=== PATIENT | female | born 1980 | race American Indian/Alaskan Native ===

== ENCOUNTER 2017-03-30 09:23 | Emergency (ER) | payer SELFPAY ==
[2017-03-30 09:30] VITALS: BP 112/57
[2017-03-30] MEDS ORDERED: PEPCID PO ONE (11:21)
--- NOTE | 2017-03-30 11:30 | Emergency Department Report ---
ED Rash HPI - HPI Chief Complaint: Skin Rash Stated Complaint: RIGHT HAND ITCHING Time Seen by Provider: 03/30/17 11:15 Duration: Today Location: Upper Extremities Suspected Cause: Other (latex gloves) Rash Symptoms: Yes Itching, No Facial Swelling, No Tongue/Oral Swelling, No Breathing Difficulties, No Choking Sensation, No Wheezing/Dyspnea, No Peeling, No Blistering, No Fever, No Lightheaded, No Malaise, No Myalgias Severity: mild Other History: This is a 37-year-old female nontoxic, well nourished in appearance, no acute signs of distress presents to the ED with c/o of bilateral hands itching and rash x1 day. Patient stated this is a chronic condiction that she develops when she wears latex gloves. 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 She denies any shortness of breath, fever, chills, nausea, vomiting, hoarseness, drooling, difficulty breathing, chest pain or shortness of breath. Patient denies any past medical history. Allergies to penicillin. ED Review of Systems ROS: Stated complaint: RIGHT HAND ITCHING Other details as noted in HPI Constitutional: denies: chills, fever Eyes: denies: eye pain, eye discharge, vision change ENT: denies: ear pain, throat pain Respiratory: denies: cough, shortness of breath, wheezing Cardiovascular: denies: chest pain, palpitations Endocrine: no symptoms reported Gastrointestinal: denies: abdominal pain, nausea, diarrhea Genitourinary: denies: urgency, dysuria, discharge Musculoskeletal: denies: back pain, joint swelling, arthralgia Skin: rash. denies: lesions Neurological: denies: headache, weakness, paresthesias Psychiatric: denies: anxiety, depression Hematological/Lymphatic: denies: easy bleeding, easy bruising ED Past Medical Hx - Past Medical History Previous Medical History?: No - Surgical History Past Surgical History?: No - Social History Smoking Status: Current Every Day Smoker Substance Use Type: None - Medications Home Medications: Home Medications Medication Instructions Recorded Confirmed Last Taken Type Ondansetron [Zofran Odt] 4 mg PO Q8HR PRN #15 tab.rapdis 06/11/14 Unknown Rx Vit-Fe Fumar-FA [ 1 each PO QDAY #30 tablet 06/11/14 Unknown Rx Vitamin] Sodium Chloride [[place]] 1 spray NS BID #1 bottle 06/11/14 Unknown Rx diphenhydrAMINE [Benadryl CAP] 25 mg PO Q8HR PRN #30 capsule 03/30/17 Unknown Rx predniSONE [Deltasone] 40 mg PO QDAY #5 tab 03/30/17 Unknown Rx Rash Exam - Exam General: Vital signs noted. No distress. Alert and acting appropriately. GENERAL: The patient is a well-developed, well-nourished female in no apparent distress. Patient is alert and acting appropriately for age. Alert and oriented 3, no apparent distress, normal gait, atraumatic. HEENT: Head is normocephalic and atraumatic. PERRL, Extraocular muscles are intact. Pupils are equal, round, and reactive to light and accommodation. Nares appeared normal. Mouth is well hydrated and without lesions. Mucous membranes are moist. Posterior pharynx clear of any exudate or lesions. Mouth is well hydrated and without lesions. Tonsils not erythematous or swollen. Uvula midline. Tongue elevated. Mucous members are moist. Posterior pharynx clear, no exudate or lesions. Patent airways. NECK: Supple. No carotid bruits. No lymphadenopathy or thyromegaly.nontender. No meningitic signs are noted. LUNGS: Clear to auscultation. Non labor breathing. No intercostal retractions. Symmetrical with respiration, no wheezing, no rales, or crackles. HEART: Regular rate and rhythm without murmur, rubs or gallops. No reproducible. S1, S2 present, regular rate and rhythm without murmur, no rubs, no gallops. ABDOMEN: Soft, nontender, and nondistended. Positive bowel sounds. No hepatosplenomegaly was noted. No guarding or rebound tenderness, negative epigastric bruit. Negative psoas sign, negative aguilar sign, negative McBurneys sign EXTREMITIES: Without any cyanosis, clubbing, rash, lesions or edema. Peripheral pulses intact. Capillary refill less than 2 seconds. Full range of motion bilaterally. NEUROLOGIC: Cranial nerves II through XII are grossly intact. Alert and oriented x 3. Normal gait. Symmetrical strength and sensation. Reflexes 2+ throughout. Cerebellar testing normal. GCS score of 15. PSYCHIATRIC: Normal affect with no suicidal or homicidal ideations. Skin: Maculopapular rash with itching. No blisters, pus or drainage noted. No joint redness or joint swelling. No signs of cellulitis. HEENT: No Periorbital Edema, No Conjuctival Injection, No Chemosis, No Perioral Edema, No Tongue Edema, No Uvular Edema, No Compromised Airway, No Drooling Lungs: Yes Good Air Exchange (Normal Breath Sounds), No Wheezes, No Ronchi, No Stridor, No Cough, No Labored Respirations, No Retractions, No Use of Accessory Muscles, No Other Abnormal Lung Sounds Heart: Yes Regular, No Murmur Skin: Yes Urticarial Rash, No Maculopapular Rash, No Morbilliform rash, No Bulla (e), No Excoriations, No Weeping, No Tenderness, No Erythema, No Edema, No Encrustations Other: Positive: Abdomen Normal, Neurologic Normal, Musculoskeletal Normal ED Course Vital Signs 03/30/17 09:26 Temperature 98.7 F Pulse Rate 69 Respiratory 16 Rate Blood Pressure 112/57 O2 Sat by Pulse 99 Oximetry - Reevaluation(s) Reevaluation #1: 03/30/17 11:31 Patient is speaking in full sentences with no signs of distress noted. ED Medical Decision Making - Medical Decision Making 37-year-old female that presented allergic reaction. Patient is stable and was examined by me. Patient received Solu-Medrol 125 mg IM the ED. Patient also received Pepcid by mouth. Patient is discharged with prednisone and Benadryl. Patient was instructed Follow-up with a primary care doctor in 3-5 days or if symptoms worsen and continue return to emergency room as soon as possible. At time time of discharge, the patient does not seem toxic or ill in appearance. No acute signs of distress noted. Patient agrees to discharge treatment plan of care. No further questions noted by the patient. Critical care attestation.: If time is entered above; I have spent that time in minutes in the direct care of this critically ill patient, excluding procedure time. ED Disposition Clinical Impression: Allergic reaction Qualifiers: Encounter type: initial encounter Qualified Code(s): T78.40XA - Allergy, unspecified, initial encounter Disposition: - TO HOME OR SELFCARE Is pt being admited?: No Does the pt Need Aspirin: No Condition: Stable Instructions: Allergies (ED), Prednisone (By mouth), Diphenhydramine (By mouth) Additional Instructions: Follow-up with a primary care doctor in 3-5 days or if symptoms worsen and continue return to emergency room as soon as possible. Prescriptions: diphenhydrAMINE [Benadryl CAP] 25 mg PO Q8HR PRN #30 capsule PRN Reason: Itching predniSONE [Deltasone] 40 mg PO QDAY #5 tab Referrals: PRIMARY CAREMD [Primary Care Provider] - 3-5 Days PING HAWTHORNE MD [Staff Physician] - 3-5 Days [facility] [Outside] - 3-5 Days [facility] [Outside] - 3-5 Days Forms: Work/School Release Form(ED)
== END 2017-03-30 12:08 | disposition home or self-care (01) ==
LOC: ED 09:23
DX: T78.40XA Allergy, unspecified, initial encounter (principal); Y92.9 Unspecified place or not applicable; F17.200 Nicotine dependence, unspecified, uncomplicated
CPT/HCPCS: 96372; 99282; J2930

== ENCOUNTER 2017-06-14 05:22 | Emergency (ER) | payer SELFPAY ==
[2017-06-14 05:49] VITALS: BP 108/71
--- NOTE | 2017-06-14 10:40 | Emergency Department Report ---
Minor Respiratory - HPI Chief Complaint: Upper Respiratory Infection Stated Complaint: FEVER,RUNNING NOSE Time Seen by Provider: 06/14/17 10:36 Duration: 3 Days Severity: moderate Minor Respiratory: Yes Able to Tolerate Fluids, Yes Cough (productive of a yellowish whitish sputum), Yes Sick Contacts (patient states that one of her coworkers has been ill as well), No Rhinorrhea, No Sore Throat, No Ear Pain, No Hemoptysis, No Chest Pain, No Shortness of Breath, No Fever Other History: Patient is a 37-year-old female who presented with cough cold congestion. Patient denies any body aches sinusitis or throat at this time. Patient also denies any nausea vomiting diarrhea as well. ED Review of Systems ROS: Stated complaint: FEVER,RUNNING NOSE Other details as noted in HPI Constitutional: denies: chills, fever Eyes: denies: eye pain, eye discharge, vision change ENT: denies: ear pain, throat pain Respiratory: denies: cough, shortness of breath, wheezing Cardiovascular: denies: chest pain, palpitations Endocrine: no symptoms reported Gastrointestinal: denies: abdominal pain, nausea, diarrhea Genitourinary: denies: urgency, dysuria, discharge Musculoskeletal: denies: back pain, joint swelling, arthralgia Skin: denies: rash, lesions Neurological: denies: headache, weakness, paresthesias Psychiatric: denies: anxiety, depression Hematological/Lymphatic: denies: easy bleeding, easy bruising ED Past Medical Hx - Past Medical History Previous Medical History?: No - Surgical History Past Surgical History?: Yes Additional Surgical History: ectopic x3 - Social History Smoking Status: Current Every Day Smoker Substance Use Type: Alcohol - Medications Home Medications: Home Medications Medication Instructions Recorded Confirmed Last Taken Type Ondansetron [Zofran Odt] 4 mg PO Q8HR PRN #15 tab.rapdis 06/11/14 Unknown Rx Vit-Fe Fumar-FA [ 1 each PO QDAY #30 tablet 06/11/14 Unknown Rx Vitamin] Sodium Chloride [[place]] 1 spray NS BID #1 bottle 06/11/14 Unknown Rx diphenhydrAMINE [Benadryl CAP] 25 mg PO Q8HR PRN #30 capsule 03/30/17 Unknown Rx predniSONE [Deltasone] 40 mg PO QDAY #5 tab 03/30/17 Unknown Rx ALBUTEROL Inhaler [ProAir HFA 1 puff IH TID #1 inha 06/14/17 Unknown Rx Inhaler] Azithromycin [Zithromax] 250 mg PO DAILY #6 tablet 06/14/17 Unknown Rx Benzonatate [Tessalon Perle] 100 mg PO TID #12 capsule 06/14/17 Unknown Rx predniSONE [Deltasone] 20 mg PO QDAY #5 tab 06/14/17 Unknown Rx Minor Respiratory Exam - Exam General: Vital signs noted. No distress. Alert and acting appropriately. HEENT: Yes Moist Mucous Membranes, No Pharyngeal Erythema, No Pharyngeal Exudates, No Rhinorrhea, No Conjuctival Injection, No Frontal Tenderness, No Maxillary Tenderness Ear: Neither TM Bulge, Neither TM Erythema, Neither EAC Pain, Neither EAC Discharge Neck: Yes Supple, No Adenopathy Lungs: Yes Good Air Exchange, No Wheezes, No Ronchi, No Stridor, No Cough, No Labored Respirations, No Retractions, No Use of Accessory Muscles, No Other Abnormal Lung Sounds Heart: Yes Regular, No Murmur Abdomen: Yes Normal Bowel Sounds, No Tenderness, No Peritoneal Signs Skin: No Rash, No Edema Neurologic: Alert and oriented, no deficits. Musculoskeletal: Unremarkable. ED Course Vital Signs 06/14/17 06/14/17 05:46 05:52 Temperature 98.5 F 98.5 F Pulse Rate 100 H 86 Respiratory 18 18 Rate Blood Pressure 108/71 108/71 O2 Sat by Pulse 97 99 Oximetry ED Medical Decision Making - Medical Decision Making Patient is a 37-year-old black female cough congestion and bronchitis type symptoms. Patient is a smoker and will be treated for smokers bronchitis. Critical care attestation.: If time is entered above; I have spent that time in minutes in the direct care of this critically ill patient, excluding procedure time. ED Disposition Clinical Impression: Acute bronchitis Disposition: DC-01 TO HOME OR SELFCARE Is pt being admited?: No Does the pt Need Aspirin: No Condition: Stable Instructions: Acute Bronchitis (ED) Prescriptions: ALBUTEROL Inhaler [ProAir HFA Inhaler] 1 puff IH TID #1 inha Azithromycin [Zithromax] 250 mg PO DAILY #6 tablet Benzonatate [Tessalon Perle] 100 mg PO TID #12 capsule predniSONE [Deltasone] 20 mg PO QDAY #5 tab Referrals: PRIMARY CARE, [Primary Care Provider] - 3-5 Days Forms: Work/School Release Form(ED)
== END 2017-06-14 10:46 | disposition home or self-care (01) ==
LOC: ED 05:22
DX: J20.9 Acute bronchitis, unspecified (principal); F17.200 Nicotine dependence, unspecified, uncomplicated; Z88.0 Allergy status to penicillin
CPT/HCPCS: 99282

== ENCOUNTER 2017-07-07 04:43 | Emergency (ER) | payer SELFPAY ==
[2017-07-07 05:00] VITALS: BP 129/72
[2017-07-07 05:29] LABS: Basophils % (Auto) 0.6 % (0.0-1.8); Eosinophils # (Auto) 0.1 K/mm3 (0.0-0.4); Eosinophils % (Auto) 2.2 % (0.0-4.3); Hematocrit 35.9 % (30.3-42.9); Hemoglobin 11.8 gm/dl (10.1-14.3); Lymphocytes # (Auto) 1.5 K/mm3 (1.2-5.4); Lymphocytes % (Auto) 39.2 % (13.4-35.0); Mean Corpuscular HGB Conc 33 % (30-34); Mean Corpuscular Hemoglobin 31 pg (28-32); Mean Corpuscular Volume 94 fl (79-97); Monocytes # (Auto) 0.3 K/mm3 (0.0-0.8); Monocytes % (Auto) 8.7 % (0.0-7.3); Platelet Count 208 K/mm3 (140-440); Red Blood Count 3.84 M/mm3 (3.65-5.03); Red Cell Distribution Width 13.7 % (13.2-15.2)
[2017-07-07] MEDS ORDERED: ZOFRAN ODT PO ONE (05:35)
[2017-07-07] MEDS ORDERED: PHENERGAN PO ONE (05:40)
--- NOTE | 2017-07-07 05:40 | Emergency Department Report ---
ED N/V/D HPI - General Chief complaint: Nausea/Vomiting/Diarrhea Stated complaint: N/V/D Time Seen by Provider: 07/07/17 05:34 Source: patient Mode of arrival: Ambulatory Limitations: No Limitations - History of Present Illness Initial comments: 37-year-old -Citizen Of [place] female with no past medical history comes in complaining of nausea vomiting diarrhea 3 days. Patient pushes been unable to hold any fluids down times one day. She has had 4 emesis in the last day. Her last episode was approximately 3:00 this morning. Patient denies abdominal pain out on Tuesday at [facility] and since then she's been having nausea vomiting diarrhea. Patient denies any travel outside the country in the last 30 days. He isn't currently takes no meds allergic to penicillin. MD complaint: nausea, vomiting -: days(s) (3) Description of Vomiting: food contents Description of Diarrhea: water Associated Abdominal Pain: No Improves with: none Worsens with: none - Related Data Previous Rx's Medication Instructions Recorded Last Taken Type Ondansetron [Zofran Odt] 4 mg PO Q8HR PRN #15 tab.rapdis 06/11/14 Unknown Rx Vit-Fe Fumar-FA [ 1 each PO QDAY #30 tablet 06/11/14 Unknown Rx Vitamin] Sodium Chloride [[place]] 1 spray NS BID #1 bottle 06/11/14 Unknown Rx diphenhydrAMINE [Benadryl CAP] 25 mg PO Q8HR PRN #30 capsule 03/30/17 Unknown Rx predniSONE [Deltasone] 40 mg PO QDAY #5 tab 03/30/17 Unknown Rx ALBUTEROL Inhaler [ProAir HFA 1 puff IH TID #1 inha 06/14/17 Unknown Rx Inhaler] Azithromycin [Zithromax] 250 mg PO DAILY #6 tablet 06/14/17 Unknown Rx Benzonatate [Tessalon Perle] 100 mg PO TID #12 capsule 06/14/17 Unknown Rx predniSONE [Deltasone] 20 mg PO QDAY #5 tab 06/14/17 Unknown Rx Nitrofurantoin Monohyd/M-Cryst 100 mg PO BID #20 capsule 07/07/17 Unknown Rx [Macrobid 100 mg Capsule] Promethazine [Phenergan TAB] 25 mg PO Q8H PRN #12 tablet 07/07/17 Unknown Rx Allergies Allergy/AdvReac Type Severity Reaction Status Date / Time Penicillins Allergy Hives Verified 03/30/17 09:30 ED Review of Systems ROS: Stated complaint: N/V/D Other details as noted in HPI Constitutional: chills. denies: fever Eyes: denies: eye pain, eye discharge, vision change ENT: denies: ear pain, throat pain Respiratory: denies: cough, shortness of breath, wheezing Cardiovascular: denies: chest pain, palpitations Endocrine: no symptoms reported Gastrointestinal: nausea, vomiting, diarrhea. denies: abdominal pain Genitourinary: denies: urgency, dysuria, discharge Musculoskeletal: denies: back pain, joint swelling, arthralgia Skin: denies: rash, lesions Neurological: denies: headache, weakness, paresthesias Psychiatric: denies: anxiety, depression Hematological/Lymphatic: denies: easy bleeding, easy bruising ED Past Medical Hx - Past Medical History Previous Medical History?: No - Surgical History Past Surgical History?: Yes Additional Surgical History: ectopic x3 - Social History Smoking Status: Never Smoker Substance Use Type: None - Medications Home Medications: Home Medications Medication Instructions Recorded Confirmed Last Taken Type Ondansetron [Zofran Odt] 4 mg PO Q8HR PRN #15 tab.rapdis 06/11/14 Unknown Rx Vit-Fe Fumar-FA [ 1 each PO QDAY #30 tablet 06/11/14 Unknown Rx Vitamin] Sodium Chloride [[place]] 1 spray NS BID #1 bottle 06/11/14 Unknown Rx diphenhydrAMINE [Benadryl CAP] 25 mg PO Q8HR PRN #30 capsule 03/30/17 Unknown Rx predniSONE [Deltasone] 40 mg PO QDAY #5 tab 03/30/17 Unknown Rx ALBUTEROL Inhaler [ProAir HFA 1 puff IH TID #1 inha 06/14/17 Unknown Rx Inhaler] Azithromycin [Zithromax] 250 mg PO DAILY #6 tablet 06/14/17 Unknown Rx Benzonatate [Tessalon Perle] 100 mg PO TID #12 capsule 06/14/17 Unknown Rx predniSONE [Deltasone] 20 mg PO QDAY #5 tab 06/14/17 Unknown Rx Nitrofurantoin Monohyd/M-Cryst 100 mg PO BID #20 capsule 07/07/17 Unknown Rx [Macrobid 100 mg Capsule] Promethazine [Phenergan TAB] 25 mg PO Q8H PRN #12 tablet 07/07/17 Unknown Rx ED Physical Exam - General Limitations: No Limitations General appearance: alert, in no apparent distress - Head Head exam: Present: atraumatic, normocephalic - Eye Eye exam: Present: normal appearance - ENT ENT exam: Present: mucous membranes moist - Neck Neck exam: Present: normal inspection - Respiratory Respiratory exam: Present: normal lung sounds bilaterally. Absent: respiratory distress - Cardiovascular Cardiovascular Exam: Present: regular rate, normal rhythm. Absent: systolic murmur, diastolic murmur, rubs, gallop - GI/Abdominal GI/Abdominal exam: Present: soft, normal bowel sounds - Extremities Exam Extremities exam: Present: normal inspection - Back Exam Back exam: Present: normal inspection - Neurological Exam Neurological exam: Present: alert, oriented X3 - Psychiatric Psychiatric exam: Present: normal affect, normal mood - Skin Skin exam: Present: warm, dry, intact, normal color. Absent: rash ED Course Vital Signs 07/07/17 04:53 Temperature 98.2 F Pulse Rate 81 Respiratory 18 Rate Blood Pressure 129/72 O2 Sat by Pulse 100 Oximetry ED Medical Decision Making - Lab Data Result diagrams: 07/07/17 05:13 07/07/17 05:13 - Medical Decision Making Patient has been evaluated by this provider fast track. CBC urine , B MP. Phenergan 25 mg were given. Review of labs. The patient has a urinary tract infection treated with Macrobid and send a urine culture out. Discussed the patient's use of follow-up with the primary care provider. Critical care attestation.: If time is entered above; I have spent that time in minutes in the direct care of this critically ill patient, excluding procedure time. ED Disposition Clinical Impression: UTI (urinary tract infection) Qualifiers: Urinary tract infection type: site unspecified Hematuria presence: without hematuria Qualified Code(s): N39.0 - Urinary tract infection, site not specified Nausea and vomiting Qualifiers: Vomiting type: unspecified Vomiting Intractability: intractable Qualified Code( s): R11.2 - Nausea with vomiting, unspecified Disposition: TO HOME OR SELFCARE Is pt being admited?: No Does the pt Need Aspirin: No Condition: Stable Instructions: Urinary Tract Infection in Women (ED) Additional Instructions: Please complete antibiotics as prescribed. He can take their Phenergan as needed for nausea and vomiting. Follow up with her primary care provider and 3- 5 days. Prescriptions: Nitrofurantoin Monohyd/M-Cryst [Macrobid 100 mg Capsule] 100 mg PO BID #20 capsule Promethazine [Phenergan TAB] 25 mg PO Q8H PRN #12 tablet PRN Reason: Nausea Referrals: ROGELIO JOHNSTON MD [Primary Care Provider] - 3-5 Days [facility] [Provider Group] - 3-5 Days [facility] [Provider Group] - 3-5 Days Forms: Work/School Release Form(ED)
[2017-07-07 05:45] LABS: BUN/Creatinine Ratio 18; Blood Urea Nitrogen 9 mg/dL (7-17); Calcium 8.3 mg/dL (8.4-10.2); Hemolysis Index 3
[2017-07-07 06:05] LABS: Bacteria,Urine 3+ /HPF (Negative); Bilirubin,Urine NEG (Negative); Blood,Urine MOD (Negative); Color,Urine Red (Yellow); Urobilinogen,Urine < 2.0 mg/dL (<2.0)
[2017-07-07 06:06] LABS: RBC,Urine > 182.0 /HPF (0.0-6.0)
== END 2017-07-07 06:33 | disposition home or self-care (01) ==
LOC: ED 04:43
DX: N39.0 Urinary tract infection, site not specified (principal); R11.2 Nausea with vomiting, unspecified; R19.7 Diarrhea, unspecified; Z88.0 Allergy status to penicillin
CPT/HCPCS: 36415; 80048; 81001; 84703; 85025; 87086; 99283; Q0169

== ENCOUNTER 2017-12-28 10:05 | Emergency (ER) | payer SELFPAY ==
[2017-12-28 10:14] VITALS: BP 125/71
[2017-12-28] MEDS ORDERED: ZOFRAN ODT PO ONE (13:07)
[2017-12-28] MEDS ORDERED: TYLENOL PO ONE (13:07)
--- NOTE | 2017-12-28 13:13 | Emergency Department Report ---
ED N/V/D HPI - General Chief complaint: Nausea/Vomiting/Diarrhea Stated complaint: VOMITING/STOMACH/HEADACHE Time Seen by Provider: 12/28/17 12:57 Source: patient Mode of arrival: Ambulatory Limitations: No Limitations - History of Present Illness Initial comments: 37-year-old female with a past medical history 3 previous ectopic resulting in removal of a left fallopian tube presents to the hospital complaints of intermittent nausea, vomiting for the past one week. Decreased by mouth tolerance reported. This time patient has also had intermittent frontal headache. Denies blurred vision, focal weakness, focal numbness, or neck pain. Patient had a recent positive test. Last month patient had a menstrual cycle but it was shorter than normal. Patient denies abdominal pain or vaginal bleeding currently. She does not plan on keeping this . - Related Data Previous Rx's Medication Instructions Recorded Last Taken Type Ondansetron [Zofran Odt] 4 mg PO Q8HR PRN #15 tab.rapdis 06/11/14 Unknown Rx Vit-Fe Fumar-FA [ 1 each PO QDAY #30 tablet 06/11/14 Unknown Rx Vitamin] Sodium Chloride [[place]] 1 spray NS BID #1 bottle 06/11/14 Unknown Rx diphenhydrAMINE [Benadryl CAP] 25 mg PO Q8HR PRN #30 capsule 03/30/17 Unknown Rx predniSONE [Deltasone] 40 mg PO QDAY #5 tab 03/30/17 Unknown Rx ALBUTEROL Inhaler [ProAir HFA 1 puff IH TID #1 inha 06/14/17 Unknown Rx Inhaler] Azithromycin [Zithromax] 250 mg PO DAILY #6 tablet 06/14/17 Unknown Rx Benzonatate [Tessalon Perle] 100 mg PO TID #12 capsule 06/14/17 Unknown Rx predniSONE [Deltasone] 20 mg PO QDAY #5 tab 06/14/17 Unknown Rx Nitrofurantoin Monohyd/M-Cryst 100 mg PO BID #20 capsule 07/07/17 Unknown Rx [Macrobid 100 mg Capsule] Promethazine [Phenergan TAB] 25 mg PO Q8H PRN #12 tablet 07/07/17 Unknown Rx Ondansetron [Zofran Odt] 4 mg PO Q8HR PRN #20 tab.rapdis 12/28/17 Unknown Rx Allergies Allergy/AdvReac Type Severity Reaction Status Date / Time Penicillins Allergy Hives Verified 12/28/17 10:12 ED Review of Systems ROS: Stated complaint: VOMITING/STOMACH/HEADACHE Other details as noted in HPI Comment: All other systems reviewed and negative ED Past Medical Hx - Past Medical History Previous Medical History?: No - Surgical History Additional Surgical History: ectopic x3 - Social History Smoking Status: Current Some Day Smoker Substance Use Type: None - Medications Home Medications: Home Medications Medication Instructions Recorded Confirmed Last Taken Type Ondansetron [Zofran Odt] 4 mg PO Q8HR PRN #15 tab.rapdis 06/11/14 Unknown Rx Vit-Fe Fumar-FA [ 1 each PO QDAY #30 tablet 06/11/14 Unknown Rx Vitamin] Sodium Chloride [[place]] 1 spray NS BID #1 bottle 06/11/14 Unknown Rx diphenhydrAMINE [Benadryl CAP] 25 mg PO Q8HR PRN #30 capsule 03/30/17 Unknown Rx predniSONE [Deltasone] 40 mg PO QDAY #5 tab 03/30/17 Unknown Rx ALBUTEROL Inhaler [ProAir HFA 1 puff IH TID #1 inha 06/14/17 Unknown Rx Inhaler] Azithromycin [Zithromax] 250 mg PO DAILY #6 tablet 06/14/17 Unknown Rx Benzonatate [Tessalon Perle] 100 mg PO TID #12 capsule 06/14/17 Unknown Rx predniSONE [Deltasone] 20 mg PO QDAY #5 tab 06/14/17 Unknown Rx Nitrofurantoin Monohyd/M-Cryst 100 mg PO BID #20 capsule 07/07/17 Unknown Rx [Macrobid 100 mg Capsule] Promethazine [Phenergan TAB] 25 mg PO Q8H PRN #12 tablet 07/07/17 Unknown Rx Ondansetron [Zofran Odt] 4 mg PO Q8HR PRN #20 tab.rapdis 12/28/17 Unknown Rx ED Physical Exam - General Limitations: No Limitations - Other Other exam information: General: No limitations, patient is alert in no acute distress Head exam: Atraumatic, normocephalic Eyes exam: Normal appearance, pupils equal reactive to light, extraocular movements intact ENT: Moist mucous membrane Neck exam: Normal inspection, full range of motion, no meningismus nontender Respiratory exam: Clear to auscultation bilateral, no wheezes, rales, crackles Cardiovascular: Normal rate and rhythm, normal heart sounds Abdomen: Soft, nondistended, and nontender, with normal bowel sounds, no rebound, or guarding Extremity: Full range of motion normal inspection no deformity Back: Normal Inspection, full range of motion, no tenderness Neurologic: Alert, oriented x3, cranial nerves intact, no motor or sensory deficit Psychiatric: normal affect, normal mood Skin: Warm, dry, intact ED Course Vital Signs 12/28/17 12/28/17 10:12 13:22 Temperature 98 F Pulse Rate 87 Respiratory 20 14 Rate Blood Pressure 125/71 O2 Sat by Pulse 99 Oximetry ED Medical Decision Making - Lab Data Lab Results 12/28/17 Range/Units 13:41 Urine Color Yellow (Yellow) Urine Turbidity Slightly-cloudy (Clear) Urine pH 6.0 (5.0-7.0) Ur Specific [place] 1.027 (1.003-1.030) Urine Protein <15 mg/dl (Negative) mg/dL Urine Glucose (UA) Neg (Negative) mg/dL Urine Ketones Neg (Negative) mg/dL Urine Blood Neg (Negative) Urine Nitrite Neg (Negative) Urine Bilirubin Neg (Negative) Urine Urobilinogen < 2.0 (<2.0) mg/dL Ur Leukocyte Esterase Mod (Negative) Urine WBC (Auto) 17.0 H (0.0-6.0) /HPF Urine RBC (Auto) 5.0 (0.0-6.0) /HPF U Epithel Cells (Auto) 3.0 (0-13.0) /HPF Urine Bacteria (Auto) 1+ (Negative) /HPF Urine HCG, Qual Positive A (Negative) - Medical Decision Making Nausea vomiting likely secondary to confirmed here in ED. will cover with antibiotic for UTI given elevated wbc [facility] follow-up encouraged Headache is mild and likely related to decreased by mouth intake for the past week - Differential Diagnosis dehydration, tension headache, migraine, Critical Care Time: No Critical care attestation.: If time is entered above; I have spent that time in minutes in the direct care of this critically ill patient, excluding procedure time. ED Disposition Clinical Impression: Nausea and vomiting in Disposition: DC-01 TO HOME OR SELFCARE Is pt being admited?: No Does the pt Need Aspirin: No Condition: Stable Instructions: Morning Sickness (ED), (ED) Additional Instructions: Take Tylenol as needed for pain. Take the medication as prescribed. Follow-up with the [facility] doctor provided or the [facility] doctor of your choice. Prescriptions: Ondansetron [Zofran Odt] 4 mg PO Q8HR PRN #20 tab.rapdis PRN Reason: Nausea And Vomiting Referrals: DAVID ASKEW MD [Staff Physician] - 3-5 Days Time of Disposition: 14:25
[2017-12-28 14:06] LABS: HCG Qualitative,Urine Positive (Negative)
[2017-12-28 14:07] LABS: Bacteria,Urine 1+ /HPF (Negative); Bilirubin,Urine NEG (Negative); Blood,Urine NEG (Negative); Color,Urine Yellow (Yellow); Protein,Urine <15 mg/dL mg/dL (Negative); Urobilinogen,Urine < 2.0 mg/dL (<2.0)
== END 2017-12-28 14:44 | disposition home or self-care (01) ==
LOC: ED 10:05
DX: O21.9 Vomiting of pregnancy, unspecified (principal); O26.891 Other specified pregnancy related conditions, first trimester; R51 Headache; F17.200 Nicotine dependence, unspecified, uncomplicated; Z88.0 Allergy status to penicillin; Z3A.00 Weeks of gestation of pregnancy not specified
CPT/HCPCS: 81001; 81025; 99283; Q0162

== ENCOUNTER 2018-11-14 09:14 | Emergency (ER) | payer OTHER ==
[2018-11-14 09:32] VITALS: BP 101/61
--- NOTE | 2018-11-14 10:26 | Emergency Department Report ---
- General Chief complaint: Skin/Abscess/Foreign Body Stated complaint: LT SIDE FACIAL PAIN Time Seen by Provider: 11/14/18 10:20 Source: patient Mode of arrival: Ambulatory Limitations: No Limitations - History of Present Illness Initial comments: 38-year-old female comes in for a skin boil to her left side of her chin for 2-3 days. Patient reports she tried squeezing something out of it but not drained. Patient denies any fever chills or nausea no vomiting. Onset/Timin -: days(s) Tetanus Up to Date: yes Location: face Severity scale (0 -10): 6 Quality: aching Consistency: intermittent Improves with: none Worsens with: none Associated symptoms: denies other symptoms Treatments Prior to Arrival: attempted to drain pus at - Related Data Previous Rx's Medication Instructions Recorded Last Taken Type Ondansetron [Zofran Odt] 4 mg PO Q8HR PRN #15 tab.rapdis 06/11/14 Unknown Rx Vit-Fe Fumar-FA [ 1 each PO QDAY #30 tablet 06/11/14 Unknown Rx Vitamin] Sodium Chloride [[place]] 1 spray NS BID #1 bottle 06/11/14 Unknown Rx diphenhydrAMINE [Benadryl CAP] 25 mg PO Q8HR PRN #30 capsule 03/30/17 Unknown Rx predniSONE [Deltasone] 40 mg PO QDAY #5 tab 03/30/17 Unknown Rx ALBUTEROL Inhaler (OR & NICU) 1 puff IH TID #1 inha 06/14/17 Unknown Rx [ProAir HFA Inhaler] Azithromycin [Zithromax] 250 mg PO DAILY #6 tablet 06/14/17 Unknown Rx Benzonatate [Tessalon Perle] 100 mg PO TID #12 capsule 06/14/17 Unknown Rx predniSONE [Deltasone] 20 mg PO QDAY #5 tab 06/14/17 Unknown Rx Nitrofurantoin Monohyd/M-Cryst 100 mg PO BID #20 capsule 07/07/17 Unknown Rx [Macrobid 100 mg Capsule] Promethazine [Phenergan] 25 mg PO Q8H PRN #12 tablet 07/07/17 Unknown Rx Nitrofurantoin Monohyd/M-Cryst 100 mg PO BID #14 capsule 12/28/17 Unknown Rx [Macrobid 100 mg Capsule] Ondansetron [Zofran Odt] 4 mg PO Q8HR PRN #20 tab.rapdis 12/28/17 Unknown Rx Amoxicillin [Amoxicillin TAB] 875 mg PO BID #20 tablet 11/14/18 Unknown Rx Ibuprofen [Motrin 600 MG tab] 600 mg PO Q8H PRN #30 tablet 11/14/18 Unknown Rx Allergies Allergy/AdvReac Type Severity Reaction Status Date / Time Penicillins Allergy Hives Verified 12/28/17 10:12 Abscess Boil HPI - HPI Chief Complaint: Skin/Abscess/Foreign Body Stated Complaint: LT SIDE FACIAL PAIN Time Seen by Provider: 11/14/18 10:20 Home Medications: Previous Rx's Medication Instructions Recorded Last Taken Type Ondansetron [Zofran Odt] 4 mg PO Q8HR PRN #15 tab.rapdis 06/11/14 Unknown Rx Vit-Fe Fumar-FA [ 1 each PO QDAY #30 tablet 06/11/14 Unknown Rx Vitamin] Sodium Chloride [[place]] 1 spray NS BID #1 bottle 06/11/14 Unknown Rx diphenhydrAMINE [Benadryl CAP] 25 mg PO Q8HR PRN #30 capsule 03/30/17 Unknown Rx predniSONE [Deltasone] 40 mg PO QDAY #5 tab 03/30/17 Unknown Rx ALBUTEROL Inhaler (OR & NICU) 1 puff IH TID #1 inha 06/14/17 Unknown Rx [ProAir HFA Inhaler] Azithromycin [Zithromax] 250 mg PO DAILY #6 tablet 06/14/17 Unknown Rx Benzonatate [Tessalon Perle] 100 mg PO TID #12 capsule 06/14/17 Unknown Rx predniSONE [Deltasone] 20 mg PO QDAY #5 tab 06/14/17 Unknown Rx Nitrofurantoin Monohyd/M-Cryst 100 mg PO BID #20 capsule 07/07/17 Unknown Rx [Macrobid 100 mg Capsule] Promethazine [Phenergan] 25 mg PO Q8H PRN #12 tablet 07/07/17 Unknown Rx Nitrofurantoin Monohyd/M-Cryst 100 mg PO BID #14 capsule 12/28/17 Unknown Rx [Macrobid 100 mg Capsule] Ondansetron [Zofran Odt] 4 mg PO Q8HR PRN #20 tab.rapdis 12/28/17 Unknown Rx Amoxicillin [Amoxicillin TAB] 875 mg PO BID #20 tablet 11/14/18 Unknown Rx Ibuprofen [Motrin 600 MG tab] 600 mg PO Q8H PRN #30 tablet 11/14/18 Unknown Rx Allergies/Adverse Reactions: Allergies Allergy/AdvReac Type Severity Reaction Status Date / Time Penicillins Allergy Hives Verified 12/28/17 10:12 ED Review of Systems ROS: Stated complaint: LT SIDE FACIAL PAIN Other details as noted in HPI Comment: All other systems reviewed and negative ED Past Medical Hx - Past Medical History Previous Medical History?: No - Surgical History Past Surgical History?: Yes Additional Surgical History: ectopic x3 - Social History Smoking Status: Current Some Day Smoker Substance Use Type: None - Medications Home Medications: Home Medications Medication Instructions Recorded Confirmed Last Taken Type Ondansetron [Zofran Odt] 4 mg PO Q8HR PRN #15 tab.rapdis 06/11/14 Unknown Rx Vit-Fe Fumar-FA [ 1 each PO QDAY #30 tablet 06/11/14 Unknown Rx Vitamin] Sodium Chloride [[place]] 1 spray NS BID #1 bottle 06/11/14 Unknown Rx diphenhydrAMINE [Benadryl CAP] 25 mg PO Q8HR PRN #30 capsule 03/30/17 Unknown Rx predniSONE [Deltasone] 40 mg PO QDAY #5 tab 03/30/17 Unknown Rx ALBUTEROL Inhaler (OR & NICU) 1 puff IH TID #1 inha 06/14/17 Unknown Rx [ProAir HFA Inhaler] Azithromycin [Zithromax] 250 mg PO DAILY #6 tablet 06/14/17 Unknown Rx Benzonatate [Tessalon Perle] 100 mg PO TID #12 capsule 06/14/17 Unknown Rx predniSONE [Deltasone] 20 mg PO QDAY #5 tab 06/14/17 Unknown Rx Nitrofurantoin Monohyd/M-Cryst 100 mg PO BID #20 capsule 07/07/17 Unknown Rx [Macrobid 100 mg Capsule] Promethazine [Phenergan] 25 mg PO Q8H PRN #12 tablet 07/07/17 Unknown Rx Nitrofurantoin Monohyd/M-Cryst 100 mg PO BID #14 capsule 12/28/17 Unknown Rx [Macrobid 100 mg Capsule] Ondansetron [Zofran Odt] 4 mg PO Q8HR PRN #20 tab.rapdis 12/28/17 Unknown Rx Amoxicillin [Amoxicillin TAB] 875 mg PO BID #20 tablet 11/14/18 Unknown Rx Ibuprofen [Motrin 600 MG tab] 600 mg PO Q8H PRN #30 tablet 11/14/18 Unknown Rx ED Physical Exam - General Limitations: No Limitations General appearance: alert, in no apparent distress - Head Head exam: Present: atraumatic, normocephalic - Eye Eye exam: Present: normal appearance - ENT ENT exam: Present: mucous membranes moist - Neurological Exam Neurological exam: Present: alert, oriented X3 - Psychiatric Psychiatric exam: Present: normal affect, normal mood - Expanded Skin Exam Expanded Type of lesion: Present: other (boil) Description of rash: Present: tenderness, papular, indurated. Absent: crusting, discharge, fluctuant ED Course Vital Signs 11/14/18 09:29 Temperature 98.1 F Pulse Rate 76 Respiratory 18 Rate Blood Pressure 101/61 O2 Sat by Pulse 96 Oximetry ED Medical Decision Making - Medical Decision Making She has been evaluated by this provider fast track a 38-year-old female comes in with a boil to her left chin. Discussed the patient is not an abscess to drain. Discussed the patient placed on antibiotics and pain medication and referral to dermatology. Patient verbalized understanding. Critical care attestation.: If time is entered above; I have spent that time in minutes in the direct care of this critically ill patient, excluding procedure time. ED Disposition Clinical Impression: Boil, face Disposition: DC-01 TO HOME OR SELFCARE Is pt being admited?: No Does the pt Need Aspirin: No Condition: Stable Instructions: Furunculosis and Carbunculosis (ED) Additional Instructions: Complete antibiotics as prescribed. Pain medication as needed. Continue using warm compresses to the chin. Be sure to take all makeup off at night. Prescriptions: Amoxicillin [Amoxicillin TAB] 875 mg PO BID #20 tablet Ibuprofen [Motrin 600 MG tab] 600 mg PO Q8H PRN #30 tablet PRN Reason: Pain Referrals: [facility] MD GIGI [Primary Care Provider] - 3-5 Days MARY ZAZUETA MD [Staff Physician] - 3-5 Days
== END 2018-11-14 10:30 | disposition home or self-care (01) ==
LOC: ED 09:14
DX: L02.02 Furuncle of face (principal); F17.200 Nicotine dependence, unspecified, uncomplicated

== ENCOUNTER 2019-05-03 07:17 | Emergency (ER) | payer SELFPAY ==
[2019-05-03 07:40] VITALS: BP 147/118
[2019-05-03] MEDS ORDERED: IBUPROFEN 800 MG TAB PO ONE (08:45)
--- NOTE | 2019-05-03 08:46 | Emergency Department Report ---
HPI - General Chief Complaint: Nausea/Vomiting/Diarrhea Time Seen by Provider: 05/03/19 08:33 - HPI HPI: Room 38 The patient is a 39-year-old female presenting with chief complaint of body aches area. The patient states last week she suffered from nausea vomiting diarrhea and periumbilical abdominal pain. There are other people at work with the same symptoms so she figured she had a "stomach virus." The patient states she took Pepto-Bismol and her symptoms improved. However, over the past 2 days patient states she developed nasal congestion hiding cold chills continued diarrhea and body aches. Patient admits her cough is productive of yellow sputum. Patient missed a subjective fever. Location: [See above] Duration: [See above] Quality: [See above] Severity: [See above] Timing: [See above] Context: [See above] Modifying factors: [See above] Associated signs and symptoms: [see above] ED Past Medical Hx - Past Medical History Previous Medical History?: No - Surgical History Past Surgical History?: No Additional Surgical History: ectopic x3 - Family History Family history: no significant - Social History Smoking Status: Current Every Day Smoker (1-2 cigarettes daily) Substance Use Type: None (denies illicit drug use), Alcohol (occasional) - Medications Home Medications: Home Medications Medication Instructions Recorded Confirmed Last Taken Type Ondansetron [Zofran Odt] 4 mg PO Q8HR PRN #15 tab.rapdis 06/11/14 Unknown Rx Vit-Fe Fumar-FA [ 1 each PO QDAY #30 tablet 06/11/14 Unknown Rx Vitamin] Sodium Chloride [[place]] 1 spray NS BID #1 bottle 06/11/14 Unknown Rx diphenhydrAMINE [Benadryl CAP] 25 mg PO Q8HR PRN #30 capsule 03/30/17 Unknown Rx predniSONE [Deltasone] 40 mg PO QDAY #5 tab 03/30/17 Unknown Rx ALBUTEROL Inhaler (OR & NICU) 1 puff IH TID #1 inha 06/14/17 Unknown Rx [ProAir HFA Inhaler] Azithromycin [Zithromax] 250 mg PO DAILY #6 tablet 06/14/17 Unknown Rx Benzonatate [Tessalon Perle] 100 mg PO TID #12 capsule 06/14/17 Unknown Rx predniSONE [Deltasone] 20 mg PO QDAY #5 tab 06/14/17 Unknown Rx Nitrofurantoin Monohyd/M-Cryst 100 mg PO BID #20 capsule 07/07/17 Unknown Rx [Macrobid 100 mg Capsule] Promethazine [Phenergan] 25 mg PO Q8H PRN #12 tablet 07/07/17 Unknown Rx Nitrofurantoin Monohyd/M-Cryst 100 mg PO BID #14 capsule 12/28/17 Unknown Rx [Macrobid 100 mg Capsule] Ondansetron [Zofran Odt] 4 mg PO Q8HR PRN #20 tab.rapdis 12/28/17 Unknown Rx Amoxicillin [Amoxicillin TAB] 875 mg PO BID #20 tablet 11/14/18 Unknown Rx Ibuprofen [Motrin 600 MG tab] 600 mg PO Q8H PRN #30 tablet 11/14/18 Unknown Rx Azithromycin [Zithromax Z-DANITA] 0 mg PO DAILY #6 tab 05/03/19 Unknown Rx Benzonatate [Tessalon Perles] 100 mg PO Q8HR #30 capsule 05/03/19 Unknown Rx Diphenoxylate/Atropine [Lomotil] 1 - 2 tab PO QID PRN #20 tablet 05/03/19 U nknown Rx HYDROcodone/APAP 5-325 [Driver 1 each PO Q6HR PRN #10 tablet 05/03/19 Unknown Rx 5/325] ED Review of Systems ROS: Stated complaint: COLD/BONE ACHES/VOMIT/FLU SYM Other details as noted in HPI Constitutional: chills Eyes: denies: eye pain ENT: congestion Respiratory: cough Cardiovascular: denies: chest pain Endocrine: no symptoms reported Gastrointestinal: abdominal pain, nausea, vomiting, diarrhea Musculoskeletal: myalgia Neurological: denies: headache Physical Exam - Physical Exam Vital Signs: Vital Signs 05/03/19 07:38 Temperature 98.2 F Pulse Rate 86 Respiratory 16 Rate Blood Pressure 147/118 O2 Sat by Pulse 100 Oximetry Physical Exam: GENERAL: The patient is well-developed well-nourished female lying on stretcher resting not appearing to be in acute distress. [] HEENT: Normocephalic. Atraumatic. Extraocular motions are intact. Patient has moist mucous membranes. NECK: Supple. Trachea midline CHEST/LUNGS: Clear to auscultation. There is no respiratory distress noted. HEART/CARDIOVASCULAR: Regular. There is no tachycardia. There is no gallop rub or murmur. ABDOMEN: Abdomen is soft, nontender. Patient has normal bowel sounds. There is no abdominal distention. SKIN: There is no rash. There is no edema. There is no diaphoresis. NEURO: The patient is awake, alert, and oriented. The patient is cooperative. The patient has normal speech MUSCULOSKELETAL:There is no evidence of acute injury. ED Course Vital Signs 05/03/19 07:38 Temperature 98.2 F Pulse Rate 86 Respiratory 16 Rate Blood Pressure 147/118 O2 Sat by Pulse 100 Oximetry ED Medical Decision Making - Lab Data Result diagrams: 05/03/19 09:06 05/03/19 09:06 Laboratory Tests 05/03/19 05/03/19 05/03/19 09:06 09:06 09:06 WBC 5.5 RBC 4.27 Hgb 13.4 Hct 40.1 MCV 94 MCH 32 MCHC 34 RDW 13.4 Plt Count 237 Lymph % (Auto) 33.5 Baker % (Auto) 7.4 H Eos % (Auto) 0.7 Baso % (Auto) 1.2 Lymph # 1.8 Baker # 0.4 Eos # 0.0 Baso # 0.1 Seg Neutrophils % 57.2 Seg Neutrophils # 3.1 Sodium 141 Potassium 4.0 Chloride 105.2 Carbon Dioxide 22 Anion Gap 18 BUN 14 Creatinine 0.6 L Estimated GFR > 60 BUN/Creatinine Ratio 23 Glucose 84 Calcium 9.5 Total Bilirubin 0.30 AST 8 ALT 12 Alkaline Phosphatase 79 Total Protein 7.8 Albumin 4.7 Albumin/Globulin Ratio 1.5 Lipase 28 HCG, Qual Negative Influenza A (Rapid) Influenza B (Rapid) 05/03/19 Unknown WBC RBC Hgb Hct MCV MCH MCHC RDW Plt Count Lymph % (Auto) Baker % (Auto) Eos % (Auto) Baso % (Auto) Lymph # Baker # Eos # Baso # Seg Neutrophils % Seg Neutrophils # Sodium Potassium Chloride Carbon Dioxide Anion Gap BUN Creatinine Estimated GFR BUN/Creatinine Ratio Glucose Calcium Total Bilirubin AST ALT Alkaline Phosphatase Total Protein Albumin Albumin/Globulin Ratio Lipase HCG, Qual Influenza A (Rapid) Negative Influenza B (Rapid) Negative - Differential Diagnosis influenza, gastroenteritis Critical care attestation.: If time is entered above; I have spent that time in minutes in the direct care of this critically ill patient, excluding procedure time. ED Disposition Clinical Impression: Acute bronchitis, Diarrhea Disposition: DC-01 TO HOME OR SELFCARE Is pt being admited?: No Does the pt Need Aspirin: No Condition: Stable Instructions: Acute Bronchitis (ED) Additional Instructions: Return to the emergency department should you develop worsening symptoms, inability to tolerate food or liquids, high fever or any other concerns Prescriptions: Diphenoxylate/Atropine [Lomotil] 1 - 2 tab PO QID PRN #20 tablet PRN Reason: Diarrhea HYDROcodone/APAP 5-325 [Driver 5/325] 1 each PO Q6HR PRN #10 tablet PRN Reason: Pain Benzonatate [Tessalon Perles] 100 mg PO Q8HR #30 capsule Azithromycin [Zithromax Z-DANITA] 0 mg PO DAILY #6 tab Referrals: [facility] [Outside] - 3-5 Days Time of Disposition: 10:22
[2019-05-03 09:31] LABS: Basophils # (Auto) 0.1 K/mm3 (0.0-0.1); Basophils % (Auto) 1.2 % (0.0-1.8); Eosinophils % (Auto) 0.7 % (0.0-4.3); Hematocrit 40.1 % (30.3-42.9); Hemoglobin 13.4 gm/dl (10.1-14.3); Lymphocytes # (Auto) 1.8 K/mm3 (1.2-5.4); Lymphocytes % (Auto) 33.5 % (13.4-35.0); Mean Corpuscular HGB Conc 34 % (30-34); Mean Corpuscular Volume 94 fl (79-97); Monocytes # (Auto) 0.4 K/mm3 (0.0-0.8); Monocytes % (Auto) 7.4 % (0.0-7.3); Platelet Count 237 K/mm3 (140-440); Red Blood Count 4.27 M/mm3 (3.65-5.03); Red Cell Distribution Width 13.4 % (13.2-15.2)
[2019-05-03 09:59] LABS: Alanine Aminotransferase 12 units/L (7-56); Albumin 4.7 g/dL (3.9-5); BUN/Creatinine Ratio 23; Blood Urea Nitrogen 14 mg/dL (7-17); Calcium 9.5 mg/dL (8.4-10.2); Hemolysis Index 5
== END 2019-05-03 10:49 | disposition home or self-care (01) ==
LOC: ED 07:17
DX: J20.9 Acute bronchitis, unspecified (principal); R19.7 Diarrhea, unspecified; R11.2 Nausea with vomiting, unspecified; F17.200 Nicotine dependence, unspecified, uncomplicated; Z79.899 Other long term (current) drug therapy
CPT/HCPCS: 36415; 80053; 83690; 84703; 85025; 87400

== ENCOUNTER 2019-07-20 07:43 | Emergency (ER) | payer SELFPAY ==
[2019-07-20 07:59] VITALS: BP 118/63
--- NOTE | 2019-07-20 09:42 | Emergency Department Report ---
Chief Complaint: Nausea/Vomiting/Diarrhea Stated Complaint: VOMITING/SORE THROAT Time Seen by Provider: 07/20/19 09:11 - HPI History of Present Illness: 39-year-old -[place] female presents to the ED ER with complaints of congestion and and sore throat that is worse with swallowing. Patient admits to nasal congestion. She admits to having a sour taste to her mouth in the morning. She admits to belching a lot. Patient also complains of nasal congestion has not taken any medication. Patient reports have a mild cough. Denies any fever chills no nausea no vomiting no abdominal pain. Patient reports no past medical history. - Exam Vital Signs: Vital Signs 07/20/19 07:57 Temperature 98.1 F Pulse Rate 85 Respiratory 20 Rate Blood Pressure 118/63 O2 Sat by Pulse 100 Oximetry Physical Exam: GENERAL APPEARANCE: Well developed, well nourished, in no acute distress. SKIN: Inspection of the skin reveals no rashes, ulcerations or petechiae. HEENT: The sclerae were anicteric and conjunctivae were pink and moist. Extraocular movements were intact and pupils were equal, round, and reactive to light with normal accommodation. External inspection of the ears and nose showed no scars, lesions, or masses. Lips, teeth, and gums showed normal mucosa. The oral mucosa, hard and soft palate, tongue and posterior pharynx were normal. NECK: Supple and symmetric. There was no thyroid enlargement, and no tenderness, or masses were felt. CHEST: Normal AP diameter and normal contour without any kyphoscoliosis. LUNGS: Auscultation of the lungs revealed normal breath sounds without any other adventitious sounds or rubs. CARDIOVASCULAR: There was a regular rate and rhythm without any murmurs, gallops, rubs. ABDOMEN: Soft and nontender with normal bowel sounds. T MUSCULOSKELETAL: Gait was normal. There was no tenderness or effusions noted. Muscle strength and tone were normal. NEUROLOGIC: Alert and oriented x 3. Normal affect. Gait was normal. MSE screening note: Focused history and physical exam performed. Due to findings the following was ordered: 39-year-old -[place] female presents to the ED ER with complaints of congestion and and sore throat that is worse with swallowing. Patient admits to nasal congestion. She admits to having a sour taste to her mouth in the morning. She admits to belching a lot. Patient also complains of nasal congestion has not taken any medication. Patient reports have a mild cough. Denies any fever chills no nausea no vomiting no abdominal pain. Patient reports no past medical history. Recommend [id number] Claritin-D for nasal congestion and cough, I recommend [id number] Pepcid or omeprazole for acid reflux. I recommend ibuprofen or Tylenol for pain. I will recommend following up with a primary care provider I have listed 1 below for your convenience. ED Disposition for MSE Disposition: MED SCREENING EXAM-LEFT Is pt being admited?: No Does the pt Need Aspirin: No Condition: Stable Additional Instructions: Recommend [id number] Claritin-D for nasal congestion and cough, I recommend [id number] Pepcid or omeprazole for acid reflux. I recommend ibuprofen or Tylenol for pain. I will recommend following up with a primary care provider I have listed 1 below for your convenience. Handout given for Covid-19 Referrals: PRIMARY MD LULA [Primary Care Provider] - 3-5 Days DEJA GUTHRIE MD [Staff Physician] - 3-5 Days Forms: Work/School Release Form(ED)
== END 2019-07-20 09:45 | disposition left against medical advice (07) ==
LOC: ED 07:43
DX: J02.9 Acute pharyngitis, unspecified (principal); R09.81 Nasal congestion; R05 Cough
CPT/HCPCS: 99281

== ENCOUNTER 2019-12-30 23:34 | Emergency (ER) | payer SELFPAY ==
[2019-12-31 01:45] VITALS: BP 114/59
--- NOTE | 2019-12-31 02:50 | XRay Report ---
CHEST 2 VIEWS, 12/31/2019 2:25 AM INDICATION: Cough. COMPARISON: None FINDINGS: Support devices: None. Heart: The cardiac silhouette is normal in size. Lungs/pleura: The lungs are well expanded and appear clear. Additional findings: No significant acute abnormality. IMPRESSION: 1. No evidence of acute cardiopulmonary process. Signer Name: Mi Mahoney MD Signed: 12/31/2019 2:45 AM Workstation Name: [id number]
--- NOTE | 2019-12-31 03:48 | Emergency Department Report ---
Minor Respiratory - HPI Chief Complaint: Upper Respiratory Infection Stated Complaint: COUGH Time Seen by Provider: 12/31/19 03:39 Duration: 5 Days Minor Respiratory: Yes Cough Other History: 39-year-old -Tongan female that I had the pleasure to see before presents to the emergency room for cough that is productive of white mucus. Patient states that this started last Tuesday after she took a shower and slept in front of a fan. Patient denies any fever chills no nausea no vomiting no chest pain no shortness of breath. Patient reports she is tried taking zdeo-zuk-mjcdrni Orin-[place] plus, Mucinex without much relief. ED Review of Systems ROS: Stated complaint: COUGH Other details as noted in HPI Comment: All other systems reviewed and negative ED Past Medical Hx - Past Medical History Previous Medical History?: Yes Additional medical history: Bronchitis - Surgical History Past Surgical History?: Yes Additional Surgical History: ectopic x3 - Social History Smoking Status: Current Every Day Smoker Substance Use Type: None - Medications Home Medications: Home Medications Medication Instructions Recorded Confirmed Last Taken Type Ondansetron [Zofran Odt] 4 mg PO Q8HR PRN #15 tab.rapdis 06/11/14 Unknown Rx Vit-Fe Fumar-FA [ 1 each PO QDAY #30 tablet 06/11/14 Unknown Rx Vitamin] Sodium Chloride [Shallow Water] 1 spray NS BID #1 bottle 06/11/14 Unknown Rx diphenhydrAMINE [Benadryl CAP] 25 mg PO Q8HR PRN #30 capsule 03/30/17 Unknown Rx predniSONE [Deltasone] 40 mg PO QDAY #5 tab 03/30/17 Unknown Rx Albuterol Mdi (or & Nicu Only) 1 puff IH TID #1 inha 06/14/17 Unknown Rx [ProAir HFA Inhaler] Azithromycin [Zithromax] 250 mg PO DAILY #6 tablet 06/14/17 Unknown Rx Benzonatate [Tessalon Perle] 100 mg PO TID #12 capsule 06/14/17 Unknown Rx predniSONE [Deltasone] 20 mg PO QDAY #5 tab 06/14/17 Unknown Rx Nitrofurantoin Monohyd/M-Cryst 100 mg PO BID #20 capsule 07/07/17 Unknown Rx [Macrobid 100 mg Capsule] Promethazine [Phenergan] 25 mg PO Q8H PRN #12 tablet 07/07/17 Unknown Rx Nitrofurantoin Monohyd/M-Cryst 100 mg PO BID #14 capsule 12/28/17 Unknown Rx [Macrobid 100 mg Capsule] Ondansetron [Zofran Odt] 4 mg PO Q8HR PRN #20 tab.rapdis 12/28/17 Unknown Rx Amoxicillin [Amoxicillin TAB] 875 mg PO BID #20 tablet 11/14/18 Unknown Rx Ibuprofen [Motrin 600 MG tab] 600 mg PO Q8H PRN #30 tablet 11/14/18 Unknown Rx Azithromycin [Zithromax Z-DANITA] 0 mg PO DAILY #6 tab 05/03/19 Unknown Rx Benzonatate [Tessalon Perles] 100 mg PO Q8HR #30 capsule 05/03/19 Unknown Rx Diphenoxylate/Atropine [Lomotil] 1 - 2 tab PO QID PRN #20 tablet 05/03/19 Unknown Rx HYDROcodone/APAP 5-325 [Loyal 1 each PO Q6HR PRN #10 tablet 05/03/19 Unknown Rx 5/325] Benzonatate [Tessalon Perles] 100 mg PO Q8HR PRN #30 capsule 12/31/19 Unknown Rx Cetirizine HCl [ZyrTEC 10mg cap] 10 mg PO QDAY #30 capsule 12/31/19 Unknown Rx Minor Respiratory Exam - Exam General: Vital signs noted. No distress. Alert and acting appropriately. HEENT: Yes Moist Mucous Membranes, No Pharyngeal Erythema, No Pharyngeal Exudates, No Rhinorrhea, No Conjuctival Injection, No Frontal Tenderness, No Maxillary Tenderness Ear: Neither TM Bulge, Neither TM Erythema, Neither EAC Pain, Neither EAC Discharge Neck: Yes Supple, No Adenopathy Lungs: Yes Good Air Exchange, No Wheezes, No Ronchi, No Stridor, No Cough, No Labored Respirations, No Retractions, No Use of Accessory Muscles, No Other Abnormal Lung Sounds Heart: Yes Regular, No Murmur Neurologic: Alert and oriented, no deficits. Musculoskeletal: Unremarkable. ED Course Vital Signs 12/31/19 01:01 Temperature 98.0 F Pulse Rate 79 Respiratory 18 Rate Blood Pressure 114/59 O2 Sat by Pulse 99 Oximetry ED Medical Decision Making - Radiology Data Radiology results: report reviewed Patient: ANANDA CALHOUN MR#: [id number] : 1980 Acct:[id number] Age/Sex: 39 / F ADM Date: 12/30/19 Loc: ED Attending Dr: Ordering Physician: REYNA VILLAR MD Date of Service: 12/31/19 Procedure(s): XR chest routine 2V Accession Number(s): [id number] cc: ED MD AUREA Fluoro Time In Minutes: CHEST 2 VIEWS, 12/31/2019 2:25 AM INDICATION: Cough. COMPARISON: None FINDINGS: Support devices: None. Heart: The cardiac silhouette is normal in size. Lungs/pleura: The lungs are well expanded and appear clear. Additional findings: No significant acute abnormality. IMPRESSION: 1. No evidence of acute cardiopulmonary process. Signer Name: Mi Mahoney MD Signed: 12/31/2019 2:45 AM Workstation Name: [id number] Transcribed By: DEYANIRA Dictated By: Mi Mahoney MD Electronically Authenticated By: Mi Mahoney MD Signed Date/Time: 12/31/19244 DD/ 3 TD/TT: - Medical Decision Making 39-year-old -Tongan female that I had the pleasure to see before presents to the emergency room for cough that is productive of white mucus. Patient states that this started last Tuesday after she took a shower and slept in front of a fan. Patient denies any fever chills no nausea no vomiting no chest pain no shortness of breath. Patient reports she is tried taking rorg-zbr-yjjmyez Orin[place] plus, Mucinex without much relief. I recommend taking uact-fus-csjqvoe Zyrtec's and I will prescribe her benzonatate. Patient is instructed to increase her water intake as the Zyrtec can cause dry mouth. Patient can follow-up with her primary care provider. Critical care attestation.: If time is entered above; I have spent that time in minutes in the direct care of this critically ill patient, excluding procedure time. ED Disposition Clinical Impression: URI, acute Disposition: DC-01 TO HOME OR SELFCARE Is pt being admited?: No Does the pt Need Aspirin: No Condition: Stable Additional Instructions: Chest x-ray was negative for any pneumonia. Please try taking ywql-jrz-fojvcal Zyrtec's 10 mg daily. Take your benzonatate cough medication as needed. Increase your water intake by 2 to 3 L daily. Follow-up with your primary care provider if you have any further concerns. Prescriptions: Benzonatate [Tessalon Perles] 100 mg PO Q8HR PRN #30 capsule PRN Reason: Cough Cetirizine HCl [ZyrTEC 10mg cap] 10 mg PO QDAY #30 capsule Referrals: DEJA GUTHRIE MD [Staff Physician] - 3-5 Days Forms: Work/School Release Form(ED)
== END 2019-12-31 04:07 | disposition home or self-care (01) ==
LOC: ED 23:34
DX: J06.9 Acute upper respiratory infection, unspecified (principal); F17.200 Nicotine dependence, unspecified, uncomplicated; Z79.899 Other long term (current) drug therapy
CPT/HCPCS: 71046; 99283

== ENCOUNTER 2020-04-30 09:43 | Emergency (ER) | payer SELFPAY ==
[2020-04-30 09:51] VITALS: BP 97/59
[2020-04-30] MEDS ORDERED: IBUPROFEN 600 MG TAB PO ONE (11:10)
--- NOTE | 2020-04-30 11:23 | Emergency Department Report ---
ED Female HPI - General Stated complaint: HEAVY VAGINAL BLEEDING, DIARRHEA Time Seen by Provider: 04/30/20 11:09 Source: patient Mode of arrival: Ambulatory Limitations: No Limitations - History of Present Illness Initial comments: 40-year-old -[place] female presents to the emergency room stating she is having diarrhea and vaginal bleeding since 08/28/2019. She states that is when her menstrual cycle started. She states that is heavy bleeding. She has been dealing with this for couple months that is been intermittent. She states that she is gone through 10 pads a day with tampons. She denies any headache no shortness of breath no chest pain no nausea. She states she did take a Midol just prior to arrival. Patient states that she took Imodium last night. MD Complaint: vaginal bleeding - Related Data Previous Rx's Medication Instructions Recorded Last Taken Type Ondansetron [Zofran Odt] 4 mg PO Q8HR PRN #15 tab.rapdis 06/11/14 Unknown Rx Vit-Fe Fumar-FA [ 1 each PO QDAY #30 tablet 06/11/14 Unknown Rx Vitamin] Sodium Chloride [Saunders] 1 spray NS BID #1 bottle 06/11/14 Unknown Rx diphenhydrAMINE [Benadryl CAP] 25 mg PO Q8HR PRN #30 capsule 03/30/17 Unknown Rx predniSONE [Deltasone] 40 mg PO QDAY #5 tab 03/30/17 Unknown Rx Albuterol Mdi (or & Nicu Only) 1 puff IH TID #1 inha 06/14/17 Unknown Rx [ProAir HFA Inhaler] Azithromycin [Zithromax] 250 mg PO DAILY #6 tablet 06/14/17 Unknown Rx Benzonatate [Tessalon Perle] 100 mg PO TID #12 capsule 06/14/17 Unknown Rx predniSONE [Deltasone] 20 mg PO QDAY #5 tab 06/14/17 Unknown Rx Nitrofurantoin Monohyd/M-Cryst 100 mg PO BID #20 capsule 07/07/17 Unknown Rx [Macrobid 100 mg Capsule] Promethazine [Phenergan] 25 mg PO Q8H PRN #12 tablet 07/07/17 Unknown Rx Nitrofurantoin Monohyd/M-Cryst 100 mg PO BID #14 capsule 12/28/17 Unknown Rx [Macrobid 100 mg Capsule] Ondansetron [Zofran Odt] 4 mg PO Q8HR PRN #20 tab.rapdis 12/28/17 Unknown Rx Amoxicillin [Amoxicillin TAB] 875 mg PO BID #20 tablet 11/14/18 Unknown Rx Ibuprofen [Motrin 600 MG tab] 600 mg PO Q8H PRN #30 tablet 11/14/18 Unknown Rx Azithromycin [Zithromax Z-DANITA] 0 mg PO DAILY #6 tab 05/03/19 Unknown Rx Benzonatate [Tessalon Perles] 100 mg PO Q8HR #30 capsule 05/03/19 Unknown Rx Diphenoxylate/Atropine [Lomotil] 1 - 2 tab PO QID PRN #20 tablet 05/03/19 Unknown Rx HYDROcodone/APAP 5-325 [Mchenry 1 each PO Q6HR PRN #10 tablet 05/03/19 Unknown Rx 5/325] Benzonatate [Tessalon Perles] 100 mg PO Q8HR PRN #30 capsule 12/31/19 Unknown Rx Cetirizine HCl [ZyrTEC 10mg cap] 10 mg PO QDAY #30 capsule 12/31/19 Unknown Rx Allergies Allergy/AdvReac Type Severity Reaction Status Date / Time No Known Allergies Allergy Verified 04/30/20 09:48 ED Review of Systems ROS: Stated complaint: HEAVY VAGINAL BLEEDING, DIARRHEA Other details as noted in HPI ED Past Medical Hx - Past Medical History Additional medical history: Bronchitis/ AMENIA - Surgical History Additional Surgical History: ectopic x3 - Social History Smoking Status: Never Smoker Substance Use Type: None - Medications Home Medications: Home Medications Medication Instructions Recorded Confirmed Last Taken Type Ondansetron [Zofran Odt] 4 mg PO Q8HR PRN #15 tab.rapdis 06/11/14 Unknown Rx Vit-Fe Fumar-FA [ 1 each PO QDAY #30 tablet 06/11/14 Unknown Rx Vitamin] Sodium Chloride [Saunders] 1 spray NS BID #1 bottle 06/11/14 Unknown Rx diphenhydrAMINE [Benadryl CAP] 25 mg PO Q8HR PRN #30 capsule 03/30/17 Unknown Rx predniSONE [Deltasone] 40 mg PO QDAY #5 tab 03/30/17 Unknown Rx Albuterol Mdi (or & Nicu Only) 1 puff IH TID #1 inha 06/14/17 Unknown Rx [ProAir HFA Inhaler] Azithromycin [Zithromax] 250 mg PO DAILY #6 tablet 06/14/17 Unknown Rx Benzonatate [Tessalon Perle] 100 mg PO TID #12 capsule 06/14/17 Unknown Rx predniSONE [Deltasone] 20 mg PO QDAY #5 tab 06/14/17 Unknown Rx Nitrofurantoin Monohyd/M-Cryst 100 mg PO BID #20 capsule 07/07/17 Unknown Rx [Macrobid 100 mg Capsule] Promethazine [Phenergan] 25 mg PO Q8H PRN #12 tablet 07/07/17 Unknown Rx Nitrofurantoin Monohyd/M-Cryst 100 mg PO BID #14 capsule 12/28/17 Unknown Rx [Macrobid 100 mg Capsule] Ondansetron [Zofran Odt] 4 mg PO Q8HR PRN #20 tab.rapdis 12/28/17 Unknown Rx Amoxicillin [Amoxicillin TAB] 875 mg PO BID #20 tablet 11/14/18 Unknown Rx Ibuprofen [Motrin 600 MG tab] 600 mg PO Q8H PRN #30 tablet 11/14/18 Unknown Rx Azithromycin [Zithromax Z-DANITA] 0 mg PO DAILY #6 tab 05/03/19 Unknown Rx Benzonatate [Tessalon Perles] 100 mg PO Q8HR #30 capsule 05/03/19 Unknown Rx Diphenoxylate/Atropine [Lomotil] 1 - 2 tab PO QID PRN #20 tablet 05/03/19 Unknown Rx HYDROcodone/APAP 5-325 [Mchenry 1 each PO Q6HR PRN #10 tablet 05/03/19 Unknown Rx 5/325] Benzonatate [Tessalon Perles] 100 mg PO Q8HR PRN #30 capsule 12/31/19 Unknown Rx Cetirizine HCl [ZyrTEC 10mg cap] 10 mg PO QDAY #30 capsule 12/31/19 Unknown Rx ED Physical Exam - General Limitations: No Limitations General appearance: alert, in no apparent distress - Head Head exam: Present: atraumatic, normocephalic - Eye Eye exam: Present: normal appearance - ENT ENT exam: Present: mucous membranes moist - Neck Neck exam: Present: normal inspection - Respiratory Respiratory exam: Present: normal lung sounds bilaterally - Cardiovascular Cardiovascular Exam: Present: regular rate - GI/Abdominal GI/Abdominal exam: Present: soft. Absent: distended, tenderness, guarding - Extremities Exam Extremities exam: Present: normal inspection, full ROM - Back Exam Back exam: Present: normal inspection - Neurological Exam Neurological exam: Present: alert, oriented X3, normal gait - Psychiatric Psychiatric exam: Present: normal affect, normal mood - Skin Skin exam: Present: warm, dry, intact, normal color. Absent: rash ED Course Vital Signs 04/30/20 09:49 Temperature 98.1 F Pulse Rate 84 Respiratory 16 Rate Blood Pressure 97/59 O2 Sat by Pulse 97 Oximetry ED Medical Decision Making - Medical Decision Making 40-year-old -[place] female presents to the emergency room stating she is having diarrhea and vaginal bleeding since 08/28/2019. She states that is when her menstrual cycle started. She states that is heavy bleeding. She has been dealing with this for couple months that is been intermittent. She states that she is gone through 10 pads a day with tampons. She denies any headache no shortness of breath no chest pain no nausea. She states she did take a Midol just prior to arrival. Patient states that she took Imodium last night. AMA with witness: the patient is alert and oriented 3. The patient exhibits decision-making capacity. The patient is free from distracting injury. The risks of leaving without a complete medical examination, and AGAINST MEDICAL ADVICE, were explained to the patient, and they included , disability, paralysis, permanent loss of quality of life. The patient verbalized understanding to these, and was able to articulate these risks in their own words, and this conversation is witnessed by * Nael dipper operator Critical care attestation.: If time is entered above; I have spent that time in minutes in the direct care of this critically ill patient, excluding procedure time. ED Disposition Clinical Impression: Menorrhagia with regular cycle Disposition: DC-07 LEFT AGAINST MED ADVICE Is pt being admited?: No Does the pt Need Aspirin: No Condition: Stable Additional Instructions: AMA discharge: As we discussed, you have left the hospital/emergency room AGAINST MEDICAL ADVICE. By leaving, you risked , disability, paralysis, permanent loss of quality of life. The ER is open 24 hours a day, 7 days a week. It never closes. Please return to the emergency room right away if and when you change your mind. If you decide not to return to the emergency room, please follow-up with the listed physician referrals as soon as possible Recommend to follow-up with an [employer]TERY [employer]GER. Referrals: EMA SALCIDO MD [Staff Physician] - 3-5 Days PRISCILLA SUNG MD [Staff Physician] - 3-5 Days CATY MENDOZA MD [Staff Physician] - 3-5 Days Forms: AMA Form, Work/School Release Form(ED)
[2020-04-30 11:48] LABS: Bacteria,Urine 2+ /HPF (Negative); Mucus,Urine FEW /HPF
[2020-04-30 11:50] LABS: Color,Urine Red (Yellow); RBC,Urine > 182.0 /HPF (0.0-6.0)
[2020-04-30 11:51] LABS: Bilirubin,Urine TNR (Negative); Blood,Urine TNR (Negative)
[2020-04-30 11:52] LABS: PH,Urine TNR (5.0-7.0); Protein,Urine TNR mg/dL (Negative); Urobilinogen,Urine TNR mg/dL (<2.0)
[2020-04-30 11:53] LABS: Ictotest,Urine TNR (Negative)
== END 2020-04-30 11:33 | disposition left against medical advice (07) ==
LOC: ED 09:43
DX: N92.0 Excessive and frequent menstruation with regular cycle (principal); Z79.899 Other long term (current) drug therapy
CPT/HCPCS: 81001; 87086; 99283

== ENCOUNTER 2021-11-04 12:15 | Emergency (ER) | payer SELFPAY ==
[2021-11-04 12:32] VITALS: BP 111/70
[2021-11-04 16:40] LABS: Bilirubin,Urine NEG (Negative); Blood,Urine NEG (Negative); Color,Urine Straw (Yellow); Protein,Urine <15 mg/dL mg/dL (Negative); Urobilinogen,Urine < 2.0 mg/dL (<2.0)
[2021-11-04 16:47] LABS: Hematocrit 39.9 % (30.3-42.9); Hemoglobin 13.1 gm/dl (10.1-14.3); Mean Corpuscular HGB Conc 33 % (30-34); Mean Corpuscular Volume 96 fl (79-97); Platelet Count 247 K/mm3 (140-440); Red Blood Count 4.15 M/mm3 (3.65-5.03); Red Cell Distribution Width 13.6 % (13.2-15.2)
[2021-11-04 17:08] LABS: Alanine Aminotransferase 12 units/L (7-56); Albumin 4.5 g/dL (3.9-5); BUN/Creatinine Ratio 11; Blood Urea Nitrogen 8 mg/dL (7-17); Calcium 9.3 mg/dL (8.4-10.2); Hemolysis Index 8
[2021-11-04] MEDS ORDERED: KETOROLAC 10 MG TAB PO ONE (17:42)
--- NOTE | 2021-11-04 17:45 | Emergency Department Report ---
ED Abdominal Pain HPI - General Chief Complaint: Abdominal Pain Stated Complaint: STOMACH CRAMPING Time Seen by Provider: 11/04/21 15:32 Source: patient Mode of arrival: Ambulatory Limitations: No Limitations - History of Present Illness Initial Comments: 41-year-old black female with a past medical history of ectopic x3 presents to the emergency department for evaluation of heavy vaginal bleeding and abdominal cramping. She states that she has been on her period for the last week and the bleeding became very heavy yesterday but has improved some today but she also started having today abdominal cramping and back pain. She denies fever, nausea, vomiting, diarrhea, and dysuria. She states that pain is a crampy type pain that is 10 out of 10 and intermittent. She states that she is also having some dizziness and weakness that she thinks is secondary to heavy bleeding from her menstrual cycle. MD Complaint: abdominal pain -: Gradual, days(s) (1) Location: diffuse Radiation: none Migration to: no migration Severity scale (0 -10): 9 Quality: cramping, aching Consistency: intermittent Associated Symptoms: denies: nausea, vomiting, diarrhea, fever, chills, dysuria, hematemesis, hematochezia, melena, hematuria, anorexia, syncope - Related Data Home Medications Medication Instructions Recorded Confirmed Last Taken No Known Home Medications [No 11/04/21 11/04/21 Unknown Reported Home Medications] Allergies Allergy/AdvReac Type Severity Reaction Status Date / Time No Known Allergies Allergy Verified 11/04/21 15:22 ED Review of Systems ROS: Stated complaint: STOMACH CRAMPING Other details as noted in HPI Comment: All other systems reviewed and negative Constitutional: denies: chills, fever Eyes: denies: eye pain, vision change Respiratory: denies: shortness of breath, SOB with exertion, SOB at rest, stridor Cardiovascular: denies: chest pain, palpitations Gastrointestinal: abdominal pain. denies: nausea, vomiting, diarrhea, hematemesis, melena, hematochezia Genitourinary: denies: urgency, dysuria Musculoskeletal: denies: back pain Skin: denies: rash, lesions Neurological: denies: headache, weakness ED Past Medical Hx - Past Medical History Additional medical history: Bronchitis/ AMENIA - Surgical History Additional Surgical History: ectopic x3 - Social History Smoking Status: Never Smoker Substance Use Type: None - Medications Home Medications: Home Medications Medication Instructions Recorded Confirmed Last Taken Type No Known Home Medications [No 11/04/21 11/04/21 Unknown History Reported Home Medications] ED Physical Exam - General Limitations: No Limitations General appearance: alert, in no apparent distress - Head Head exam: Present: atraumatic, normocephalic - Eye Eye exam: Present: normal appearance. Absent: scleral icterus, conjunctival injection - ENT ENT exam: Present: normal exam, normal orophraynx - Neck Neck exam: Present: normal inspection, full ROM. Absent: tenderness, lymphadenopathy - Respiratory Respiratory exam: Present: normal lung sounds bilaterally. Absent: respiratory distress, wheezes, rales, rhonchi, stridor, chest wall tenderness - Cardiovascular Cardiovascular Exam: Present: regular rate, normal heart sounds - GI/Abdominal GI/Abdominal exam: Present: soft, normal bowel sounds. Absent: distended, tenderness, rigid - Extremities Exam Extremities exam: Present: normal inspection, normal capillary refill. Absent: pedal edema, joint swelling - Back Exam Back exam: Present: normal inspection. Absent: CVA tenderness (R), CVA tenderness (L), vertebral tenderness - Neurological Exam Neurological exam: Present: alert, oriented X3 - Psychiatric Psychiatric exam: Present: normal affect, normal mood - Skin Skin exam: Present: warm, dry, intact, normal color ED Course Vital Signs 11/04/21 12:25 Temperature 98.2 F Pulse Rate 95 H Respiratory 18 Rate Blood Pressure 111/70 [Right] ED Medical Decision Making - Lab Data Result diagrams: 11/04/21 16:28 11/04/21 16:28 - Medical Decision Making 41-year-old black female with a past medical history of ectopic x3 presents to the emergency department for evaluation of heavy vaginal bleeding and abdominal cramping. She states that she has been on her period for the last week and the bleeding became very heavy yesterday but has improved some today but she also started having today abdominal cramping and back pain. She denies fever, nausea, vomiting, diarrhea, and dysuria. She states that pain is a crampy type pain that is 10 out of 10 and intermittent. She states that she is also having some dizziness and weakness that she thinks is secondary to heavy bleeding from her menstrual cycle. Physical exam unremarkable. Labs unremarkable. Symptoms resolved after medication. Patient states that while sitting in the waiting room, bleeding has come clinically resolved. She is advised to take ibuprofen and Tylenol as needed for pain and follow-up with SUPERVISOR SAWMILL for further evaluation and management or return to the ER as needed. She verbalizes understanding of and agreement with plan of care. Critical care attestation.: If time is entered above; I have spent that time in minutes in the direct care of this critically ill patient, excluding procedure time. ED Disposition Clinical Impression: Abdominal cramping Disposition: 01 HOME / SELF CARE / HOMELESS Is pt being admited?: No Does the pt Need Aspirin: No Condition: Stable Instructions: Abdominal Pain, Adult, [id number], Abdominal Pain (ED) Additional Instructions: Take ibuprofen as needed for pain. Follow-up with primary care provider or SUPERVISOR SAWMILL for further evaluation and management. Return to the emergency department as needed. Referrals: DEJA GUTHRIE MD [Primary Care Provider] - 3-5 Days DION MATHEW MD [Staff Physician] - 3-5 Days Forms: Work/School Release Form(ED)
== END 2021-11-04 18:30 | disposition home or self-care (01) ==
LOC: ED 12:15
DX: R10.84 Generalized abdominal pain (principal); Z79.899 Other long term (current) drug therapy
CPT/HCPCS: 36415; 80053; 81001; 84702; 85027; 99283